=== PATIENT | female | born 1970 | race Caucasian/White ===

== ENCOUNTER 2017-04-22 09:57 | Emergency (ER) | payer MEDICAID ==
[~2017-04-22] VITALS: Ht 160 cm; Wt 63.6 kg
[~2017-04-22 09:57] MED LIST: CLIN-79 PO; HYDR-565 PO; ONDA8TAB9 PO
[2017-04-22 10:16] VITALS: BP 130/73
== END 2017-04-22 12:05 | disposition home or self-care (01) ==
LOC: ER 09:58
DX: M25.531 Pain in right wrist (principal); G43.909 Migraine, unspecified, not intractable, without status migrainosus; Z90.49 Acquired absence of other specified parts of digestive tract; Z98.890 Other specified postprocedural states; Z88.2 Allergy status to sulfonamides; Z88.5 Allergy status to narcotic agent; W18.09XA Striking against other object with subsequent fall, initial encounter; Y93.89 Activity, other specified; Y92.89 Other specified places as the place of occurrence of the external cause; Y99.9 Unspecified external cause status
CPT/HCPCS: 29125; 73100; 99284

== ENCOUNTER 2018-01-04 10:38 | Emergency (ER) | payer MEDICAID ==
[~2018-01-04] VITALS: Ht 157.5 cm; Wt 68.2 kg
[~2018-01-04 10:38] MED LIST changes: +AMOX-422 PO; -CLIN-79 PO; +CLIN150C8 PO
[2018-01-04 11:49] LABS: BASOPHILS % (AUTO) 0.4 % (0-1); EOSINOPHILS # (AUTO) 0.3 X10'3 (0-0.9); EOSINOPHILS % (AUTO) 6.6 % (0-6); HEMATOCRIT 36.8 % (35.0-45.0); HEMOGLOBIN 12.6 g/dl (12.0-16.0); LYMPHOCYTES # (AUTO) 1.5 X10'3 (1.1-4.8); LYMPHOCYTES % (AUTO) 35.9 % (21-51); MEAN CORPUSCULAR HEMOGLOBIN 31.2 PG (27.0-31.0); MEAN CORPUSCULAR HGB CONC 34.3 % (33.0-36.5); MEAN PLATELET VOLUME 8.6 FL (7.4-10.4); MONOCYTES # (AUTO) 0.4 X10'3 (0-0.9); MONOCYTES % (AUTO) 10.6 % (2-12); NEUTROPHILS % (AUTO) 46.5 % (42-75); PLATELET COUNT 274 X10'3 (140-440); RED BLOOD COUNT 4.05 X10'6 (4.20-5.60); RED CELL DISTRIBUTION WIDTH 13.6 % (11.5-14.5); WHITE BLOOD COUNT 4.2 X10'3 (4.5-11.0)
[2018-01-04 12:02] LABS: ALANINE AMINOTRANSFERASE 175 U/L (12-78); ALBUMIN 3.2 G/DL (3.4-5.0); ALKALINE PHOSPHATASE 270 IU/L (46-116); ANION GAP 8 (8-16); ASPARTATE AMINO TRANSFERASE 183 U/L (10-37); BILIRUBIN,TOTAL 0.3 MG/DL (0.1-1.0); BLOOD UREA NITROGEN 9 MG/DL (7-18); CALCIUM 8.5 MG/DL (8.5-10.1); CHLORIDE 108 MMOL/L (99-107); GLUCOSE 104 MG/DL (70-104); POTASSIUM 3.9 MMOL/L (3.5-5.1); SODIUM 141 MMOL/L (135-145); TOTAL CARBON DIOXIDE 25.5 MMOL/L (24-32); TOTAL PROTEIN 6.5 G/DL (6.4-8.2); eGFR 67 ML/MIN
[2018-01-04 12:29] VITALS: BP 121/77
== END 2018-01-04 12:30 | disposition home or self-care (01) ==
LOC: ER 10:38
DX: S51.831D Puncture wound without foreign body of right forearm, subsequent encounter (principal); S51.851D Open bite of right forearm, subsequent encounter; S40.021D Contusion of right upper arm, subsequent encounter; R60.0 Localized edema; R79.89 Other specified abnormal findings of blood chemistry; G43.909 Migraine, unspecified, not intractable, without status migrainosus; Z90.49 Acquired absence of other specified parts of digestive tract; Z88.2 Allergy status to sulfonamides; Z88.5 Allergy status to narcotic agent; Z79.2 Long term (current) use of antibiotics; Z79.899 Other long term (current) drug therapy; W54.0XXD Bitten by dog, subsequent encounter
CPT/HCPCS: 36415; 80053; 83880; 85025; 93005; 99285

== ENCOUNTER 2018-03-09 14:53 | Emergency (ER) | payer MEDICAID ==
[~2018-03-09] VITALS: Ht 157.5 cm; Wt 65.0 kg
[~2018-03-09 14:53] MED LIST changes: -AMOX-422 PO; +HYDR-4353 PO; -HYDR-565 PO
[2018-03-09] MEDS ORDERED: HYDROcodone/acetaminophen 10/325mg tab PO ONE (15:40)
[2018-03-09] MEDS ORDERED: ondansetron 4mg rapidly disintigrating tab PO ONE (15:40)
[2018-03-09] MEDS ORDERED: IBUP-1984 PO (16:46)
[2018-03-09 17:29] VITALS: BP 115/64
== END 2018-03-09 17:32 | disposition home or self-care (01) ==
LOC: ER 14:54
DX: S00.83XA Contusion of other part of head, initial encounter (principal); R11.10 Vomiting, unspecified; G43.909 Migraine, unspecified, not intractable, without status migrainosus; Z88.2 Allergy status to sulfonamides; Z88.6 Allergy status to analgesic agent; Z90.49 Acquired absence of other specified parts of digestive tract; Z98.890 Other specified postprocedural states; W22.03XA Walked into furniture, initial encounter; Y93.89 Activity, other specified; Y92.89 Other specified places as the place of occurrence of the external cause; Y99.8 Other external cause status
CPT/HCPCS: 70486; 99284

== ENCOUNTER 2018-11-03 16:40 | Emergency (ER) | payer MEDICAID ==
[~2018-11-03] VITALS: Ht 160 cm; Wt 68.0 kg
[2018-11-03 17:21] VITALS: BP 123/79
== END 2018-11-03 17:29 | disposition home or self-care (01) ==
LOC: ER 16:40
DX: S50.11XA Contusion of right forearm, initial encounter (principal); G43.909 Migraine, unspecified, not intractable, without status migrainosus; F41.0 Panic disorder [episodic paroxysmal anxiety]; Z90.49 Acquired absence of other specified parts of digestive tract; Z98.890 Other specified postprocedural states; Z88.2 Allergy status to sulfonamides; Z88.5 Allergy status to narcotic agent; Z79.899 Other long term (current) drug therapy; W01.198A Fall on same level from slipping, tripping and stumbling with subsequent striking against other object, initial encounter; Y93.89 Activity, other specified; Y92.89 Other specified places as the place of occurrence of the external cause; Y99.8 Other external cause status
CPT/HCPCS: 73090; 73110; 99284

== ENCOUNTER 2019-03-17 15:52 | Emergency (ER) | payer MEDICAID ==
[~2019-03-17] VITALS: Ht 158.8 cm; Wt 63.6 kg
[2019-03-17] MEDS ORDERED: ketorolac trometh inj. 60 MG/2 ML VIAL IM ONE (16:15)
[2019-03-17 17:17] VITALS: BP 119/58
== END 2019-03-17 17:21 | disposition home or self-care (01) ==
LOC: ER 15:53
DX: S33.5XXA Sprain of ligaments of lumbar spine, initial encounter (principal); S83.91XA Sprain of unspecified site of right knee, initial encounter; S93.401A Sprain of unspecified ligament of right ankle, initial encounter; S73.101A Unspecified sprain of right hip, initial encounter; F41.0 Panic disorder [episodic paroxysmal anxiety]; Z90.49 Acquired absence of other specified parts of digestive tract; Z98.890 Other specified postprocedural states; Z88.2 Allergy status to sulfonamides; Z88.5 Allergy status to narcotic agent; Z79.2 Long term (current) use of antibiotics; Z79.899 Other long term (current) drug therapy; W01.0XXA Fall on same level from slipping, tripping and stumbling without subsequent striking against object, initial encounter; Y93.89 Activity, other specified; Y92.89 Other specified places as the place of occurrence of the external cause; Y99.8 Other external cause status
CPT/HCPCS: 72110; 73502; 73564; 73610; 96372; 99284; J1885

== ENCOUNTER 2019-11-11 17:46 | Emergency (ER) | payer OTHER, MEDICAID ==
[2019-11-11 18:02] VITALS: BP 116/93
[2019-11-11] MEDS ORDERED: ketorolac tromethamine 15mg/ml inj. IM ONE (19:25)
== END 2019-11-11 20:12 | disposition home or self-care (01) ==
LOC: ER 17:47
DX: M25.511 Pain in right shoulder (principal); M54.5 Low back pain; G43.909 Migraine, unspecified, not intractable, without status migrainosus; Z90.49 Acquired absence of other specified parts of digestive tract; Z98.890 Other specified postprocedural states; Z88.2 Allergy status to sulfonamides; Z88.5 Allergy status to narcotic agent; V49.88XA Car occupant (driver) (passenger) injured in other specified transport accidents, initial encounter; Y93.89 Activity, other specified; Y92.413 State road as the place of occurrence of the external cause; Y99.9 Unspecified external cause status
CPT/HCPCS: 73030; 96372; 99283; J1885

== ENCOUNTER 2021-07-15 16:34 | Emergency (ER) | payer MEDICAID, OTHER ==
[~2021-07-15] VITALS: Ht 160 cm; Wt 59.1 kg
[2021-07-15] MEDS ORDERED: ondansetron/PF 4mg/2ml inj IV ONE (16:50)
[2021-07-15 17:22] LABS: BASOPHILS % (AUTO) 0.4 % (0-1); EOSINOPHILS # (AUTO) 0.2 X10'3 (0-0.9); EOSINOPHILS % (AUTO) 2.5 % (0-6); HEMATOCRIT 32.9 % (35.0-45.0); LYMPHOCYTES # (AUTO) 1.8 X10'3 (1.1-4.8); LYMPHOCYTES % (AUTO) 22.8 % (21-51); MEAN CORPUSCULAR HEMOGLOBIN 30.5 PG (27.0-31.0); MEAN CORPUSCULAR HGB CONC 33.4 g/dL (33.0-36.5); MEAN CORPUSCULAR VOLUME 91.2 FL (78-98); MONOCYTES # (AUTO) 0.4 X10'3 (0-0.9); MONOCYTES % (AUTO) 5.3 % (2-12); NEUTROPHILS # (AUTO) 5.5 X10'3 (1.8-7.7); PLATELET COUNT 235 X10'3 (140-440); RED BLOOD COUNT 3.61 X10'6 (4.20-5.60); RED CELL DISTRIBUTION WIDTH 13.7 % (11.5-14.5)
[2021-07-15 17:37] LABS: ALANINE AMINOTRANSFERASE 69 U/L (12-78); ALBUMIN 2.8 G/DL (3.4-5.0); ALBUMIN/GLOBULIN RATIO 1.2 (1.1-1.5); ALKALINE PHOSPHATASE 104 IU/L (46-116); ANION GAP 13 (8-16); ASPARTATE AMINO TRANSFERASE 55 U/L (10-37); BILIRUBIN,TOTAL 0.2 MG/DL (0.1-1.0); BLOOD UREA NITROGEN 17 MG/DL (7-18); BUN/CREATININE RATIO 27.9 (6.6-38.0); CALCIUM 6.8 MG/DL (8.5-10.1); CHLORIDE 112 MMOL/L (99-107); CREATININE 0.61 MG/DL (0.40-0.90); GLUCOSE 58 MG/DL (70-104); SODIUM 148 MMOL/L (135-145); TOTAL CARBON DIOXIDE 23.5 MMOL/L (24-32); TOTAL PROTEIN 5.2 G/DL (6.4-8.2); eGFR > 90 ML/MIN
[2021-07-15 17:42] LABS: POTASSIUM 2.6 MMOL/L (3.5-5.1)
[2021-07-15] MEDS ORDERED: potassium Cl 20 mEq SR tablet PO ONE (17:50)
[2021-07-15] MEDS ORDERED: proCHLORperazine 10 MG/2 ml inj IV ONE (17:50)
[2021-07-15 18:35] LABS: URINE HCG NEGATIVE (NEG)
[2021-07-15 18:37] VITALS: BP 127/88
[2021-07-15] MEDS ORDERED: iohexol 300mg/ml 100ml inj. ONE (18:43)
[2021-07-15 18:46] LABS: URINE AMPHETAMINE SCREEN NEGATIVE (Neg); URINE BARBITUATE SCREEN NEGATIVE (Neg); URINE BENZODIAZEPINES SCREEN NEGATIVE (Neg); URINE CANNABINOID SCREEN NEGATIVE (Neg); URINE COCAINE SCREEN NEGATIVE (Neg); URINE METHADONE SCREEN NEGATIVE (Neg); URINE OPIATE SCREEN NEGATIVE (Neg); URINE PHENCYCLIDINE SCREEN NEGATIVE (Neg)
[2021-07-15] MEDS ORDERED: acetaminophen 325mg tablet PO ONE (19:25)
[2021-07-15] MEDS ORDERED: NALO4SPR BOTHNARES (20:08)
== END 2021-07-15 20:23 | disposition home or self-care (01) ==
LOC: ER 16:34
DX: T40.2X1A Poisoning by other opioids, accidental (unintentional), initial encounter (principal); R11.2 Nausea with vomiting, unspecified; E87.6 Hypokalemia; G89.29 Other chronic pain; G43.909 Migraine, unspecified, not intractable, without status migrainosus; Z88.2 Allergy status to sulfonamides; Z88.5 Allergy status to narcotic agent; Y92.89 Other specified places as the place of occurrence of the external cause
CPT/HCPCS: 36415; 71260; 74177; 80053; 80305; 81025; 85025; 93005; 96374; 96375; 99285; J0780; J2405; Q9967

== ENCOUNTER 2023-02-26 10:24 | Emergency (ER) | payer MEDICAID, OTHER ==
[~2023-02-26] VITALS: Ht 160 cm; Wt 59.1 kg
[~2023-02-26 10:24] MED LIST changes: +CLIN-214 PO; -CLIN150C8 PO; +NALO4SPR BOTHNARES
[2023-02-26 10:31] VITALS: BP 127/78; PULSE 78; TEMP 97.6; O2SAT 99
[2023-02-26] MEDS ORDERED: ondansetron 4mg rapidly disintigrating tab PO ONE (11:40)
[2023-02-26] MEDS ORDERED: HYDROcodone/acetaminophen 5mg/325mg tablet PO ONE (11:40)
[2023-02-26] MEDS ORDERED: ketorolac trometh. 30mg/ml inj. IM ONE (11:40)
[2023-02-26 12:27] VITALS: RESP 17
== END 2023-02-26 13:26 | disposition home or self-care (01) ==
LOC: ER 10:24
DX: S00.33XA Contusion of nose, initial encounter (principal); X58.XXXA Exposure to other specified factors, initial encounter; Y93.89 Activity, other specified; Y92.89 Other specified places as the place of occurrence of the external cause; Y99.8 Other external cause status
CPT/HCPCS: 70486; 96372; 99285; J1885

== ENCOUNTER 2023-05-12 07:35 | Emergency (ER) | payer MEDICAID, OTHER ==
[~2023-05-12] VITALS: Ht 160 cm; Wt 62.0 kg
[2023-05-12 08:49] LABS: BASOPHILS % (AUTO) 0.8 % (0-1); EOSINOPHILS # (AUTO) 0.1 X10'3 (0-0.9); HEMATOCRIT 42.6 % (35.0-45.0); HEMOGLOBIN 14.4 g/dl (12.0-16.0); LYMPHOCYTES # (AUTO) 1.3 X10'3 (1.1-4.8); MEAN CORPUSCULAR HEMOGLOBIN 31.1 PG (27.0-31.0); MEAN CORPUSCULAR HGB CONC 33.8 g/dL (33.0-36.5); MEAN PLATELET VOLUME 8.5 FL (7.4-10.4); MONOCYTES # (AUTO) 0.4 X10'3 (0-0.9); MONOCYTES % (AUTO) 10.3 % (2-12); NEUTROPHILS # (AUTO) 2.2 X10'3 (1.8-7.7); NEUTROPHILS % (AUTO) 54.9 % (42-75); PLATELET COUNT 307 X10'3 (140-440); RED BLOOD COUNT 4.63 X10'6 (4.20-5.60); RED CELL DISTRIBUTION WIDTH 13.5 % (11.5-14.5); WHITE BLOOD COUNT 4.1 X10'3 (4.5-11.0)
[2023-05-12 09:07] LABS: ALANINE AMINOTRANSFERASE 33 U/L (12-78); ALBUMIN 3.9 G/DL (3.4-5.0); ALBUMIN/GLOBULIN RATIO 1.1 (1.1-1.5); ALKALINE PHOSPHATASE 120 IU/L (46-116); ANION GAP 7 (8-16); ASPARTATE AMINO TRANSFERASE 21 U/L (10-37); BILIRUBIN,TOTAL 0.3 MG/DL (0.1-1.0); BLOOD UREA NITROGEN 12 MG/DL (7-18); BUN/CREATININE RATIO 16.9 (10.0-20.0); CALCIUM 9.1 MG/DL (8.5-10.1); CHLORIDE 106 MMOL/L (99-107); CREATININE 0.71 MG/DL (0.40-0.90); GLUCOSE 103 MG/DL (70-104); POTASSIUM 3.4 MMOL/L (3.5-5.1); SODIUM 139 MMOL/L (135-145); TOTAL CARBON DIOXIDE 25.7 MMOL/L (24-32); TOTAL PROTEIN 7.4 G/DL (6.4-8.2); eCRCL 77 ML/MIN; eGFR 86 ML/MIN
[2023-05-12 09:15] LABS: PRO BRAIN NATRIURETIC PEPTIDE 64 PG/ML (0-125)
[2023-05-12] MEDS ORDERED: METH4TAB81 PO (10:38)
[2023-05-12 10:57] VITALS: BP 133/81; PULSE 80; RESP 17; TEMP 98.1; O2SAT 99
== END 2023-05-12 11:03 | disposition home or self-care (01) ==
LOC: ER 07:36
DX: J45.901 Unspecified asthma with (acute) exacerbation (principal); G43.909 Migraine, unspecified, not intractable, without status migrainosus
CPT/HCPCS: 36415; 71045; 80053; 83880; 84484; 85025; 93005; 99285

== ENCOUNTER 2024-02-18 11:03 | Emergency (ER) | payer OTHER, MEDICAID ==
[~2024-02-18] VITALS: Ht 160 cm; Wt 44.6 kg
[~2024-02-18 11:03] MED LIST changes: +METH4TAB81 PO; +NIRM1TAB9 PO
[2024-02-18 11:12] VITALS: BP 105/65; PULSE 90; RESP 16; O2SAT 94
[2024-02-18] MEDS ORDERED: iohexol 300mg/ml 100ml inj. ONE (13:37)
[2024-02-18 14:46] VITALS: TEMP 98
== END 2024-02-18 14:48 | disposition home or self-care (01) ==
LOC: ER 11:04
DX: G50.1 Atypical facial pain (principal); Z88.2 Allergy status to sulfonamides; G43.909 Migraine, unspecified, not intractable, without status migrainosus; J45.909 Unspecified asthma, uncomplicated; Z88.5 Allergy status to narcotic agent; Z88.8 Allergy status to other drugs, medicaments and biological substances; Z79.2 Long term (current) use of antibiotics; Z79.899 Other long term (current) drug therapy; Z90.49 Acquired absence of other specified parts of digestive tract; V89.2XXA Person injured in unspecified motor-vehicle accident, traffic, initial encounter; Y93.89 Activity, other specified; Y92.89 Other specified places as the place of occurrence of the external cause; Y99.8 Other external cause status
CPT/HCPCS: 70487; 99285; Q9967